=== PATIENT | male | born 1985 | race Caucasian/White ===

== ENCOUNTER 2018-02-16 21:14 | Emergency (ER) | payer SELFPAY ==
[~2018-02-16] VITALS: Ht 177.8 cm; Wt 79.4 kg
[2018-02-16] MEDS ORDERED: IV NS 0.9% 1,000 ML BAG IV ONE (22:00)
--- NOTE | 2018-02-16 22:00 | NUR ---
PT BIBSELF C/O ABD PAIN AND HIGH BLOOD SUGAR X 4 DAYS. PT REPORTS BLOOD SUGAR HAS BEEN IN THE 500'S. PT ON MONITOR IN BED 7. WILL CONTINUE TO MONITOR.
--- NOTE | 2018-02-16 22:19 | NUR ---
PHLEB AT BED SIDE FOR LAB DRAW
[2018-02-16 22:29] LABS: BASOPHILS # (AUTO) 0.1 /CMM (0.0-0.2); BASOPHILS % (AUTO) 1.1 % (0.0-2.0); EOSINOPHILS % (AUTO) 1.7 % (0.0-6.0); HEMATOCRIT 29 % (39-51); HEMOGLOBIN 9.3 g/dL (13.5-17.5); LYMPHOCYTES # (AUTO) 1.1 /CMM (0.8-4.8); LYMPHOCYTES % (AUTO) 20.9 % (20.0-44.0); MEAN CORPUSCULAR HGB CONC 33 g/dl (31.0-36.0); MEAN CORPUSCULAR VOLUME 78 fL (80-96); MONOCYTES # (AUTO) 0.4 /CMM (0.1-1.30); NEUTROPHILS # (AUTO) 3.5 /CMM (1.8-8.9); NEUTROPHILS % (AUTO) 68.3 % (43.0-81.0); PLATELET COUNT (AUTO) 606 /CMM (150-450); RED BLOOD CELL COUNT(AUTO) 3.63 MIL/uL (4.5-6.0); WHITE BLOOD COUNT (AUTO) 5.2 K/uL (4.3-11.0)
[2018-02-16] MEDS ORDERED: INSULIN REGULAR, HUMAN 100 UNIT/ML 10 ML VIAL SQ ONE (22:30)
[2018-02-16] MEDS ORDERED: INSULIN REGULAR, HUMAN 100 UNIT/ML 10 ML VIAL ONE (22:33)
[2018-02-16 22:56] LABS: APPEARANCE,URINE Clear (CLEAR); BILIRUBIN,URINE Negative (NEGATIVE); BLOOD, URINE Negative Ery/uL (NEGATIVE); COLOR,URINE Light yellow (YELLOW); KETONES,URINE Negative (NEGATIVE); LEUKOCYTE ESTERASE ,URINE Negative (NEGATIVE); NITRITE, URINE Negative (NEGATIVE); PROTEIN,URINE Negative (NEGATIVE); UGLUCOSE 500 MG/DL mg/dL (NEGATIVE); UROBILINOGEN,URINE 0.2 EU/dL (0.2)
[2018-02-16 22:59] LABS: ALBUMIN 2.8 g/dL (3.4-5.0); BILIRUBIN,DIRECT 0.1 mg/dL (0.0-0.2); BILIRUBIN,TOTAL 0.3 mg/dL (0.2-1.0); CALCIUM, SERUM 8.9 mg/dL (8.5-10.1); CREATININE 0.8 mg/dL (0.6-1.3); POTASSIUM 4.8 mmol/L (3.5-5.1); TOTAL PROTEIN, SERUM 7.9 g/dL (6.4-8.2)
--- NOTE | 2018-02-16 23:30 | NUR ---
PT TAKEN TO RADIOLOGY FOR CT
[2018-02-16] MEDS ORDERED: MORPHINE SULFATE INJ 4 MG/ML DISP.SYRIN ONE (23:58)
[2018-02-17] MEDS ORDERED: MORPHINE SULFATE INJ 2 MG/ML DISP.SYRIN IV ONE
--- NOTE | 2018-02-17 01:01 | NUR ---
IV removed. Catheter intact and site benign. Pressure and 4x4 applied to site. No bleeding noted.Patient discharged to home in stable condition. Written and verbal after care instructions given. Patient verbalizes understanding of instruction.
[2018-02-17 01:02] VITALS: BP 143/98
== END 2018-02-17 01:03 | disposition home or self-care (01) ==
LOC: ER 21:17
DX: E11.65 Type 2 diabetes mellitus with hyperglycemia (principal); R10.84 Generalized abdominal pain; F32.9 Major depressive disorder, single episode, unspecified; G47.00 Insomnia, unspecified; F17.200 Nicotine dependence, unspecified, uncomplicated; Z98.890 Other specified postprocedural states; Z87.19 Personal history of other diseases of the digestive system; Z88.1 Allergy status to other antibiotic agents; Z88.8 Allergy status to other drugs, medicaments and biological substances
CPT/HCPCS: 36415; 80048-TC; 80076-TC; 81000-TC; 82010-TC; 82962-TC; 83605-TC; 83690-TC; 85025-TC; 85730-TC; A4606; J1815; J2270; J7030; J7040; Z7610

== ENCOUNTER 2018-03-20 18:31 | Emergency (ER) | payer SELFPAY ==
[~2018-03-20] VITALS: Ht 177.8 cm; Wt 77.1 kg
--- NOTE | 2018-03-20 19:10 | NUR ---
PT BIBSELF C/O MIDEPIGASTRIC PAIN. PT RECENTLY DISCHARGED FROM IN PATIENT, PT STATES SYMPTOMS TODAY ARE SIMILIAR FROM PREVIOUS VISIT. PT AAOX4. RESPIRATIONS EVEN AND UNLABORED. SKIN WARM AND INTACT. VITAL SIGNS STABLE. NO ACUTE DISTRESS NOTED AT THIS TIME. PT AMBULATORY TO ER BED. WILL CONTINUE TO MONITOR
--- NOTE | 2018-03-20 19:15 | NUR ---
JACIEL JUNE AT BEDSIDE FOR EVALUATION
[2018-03-20] MEDS ORDERED: ASPIRIN 81 MG TAB.CHEW ONE (19:21)
[2018-03-20] MEDS ORDERED: ASPIRIN 81 MG TAB.CHEW PO ONE (19:30)
--- NOTE | 2018-03-20 19:30 | NUR ---
UNABLE TO ESTABLISH IV ACCESS. MULTIPLE ATTEMPTS. PT STATES "USUALLY THEY HAVE TO DO A CENTRAL LINE ON ME". CALLED LAB FOR BLOOD DRAW. JACIEL JUNE AWARE
--- NOTE | 2018-03-20 19:42 | NUR ---
RADIOLOGY AT BEDSIDE FOR CXR
--- NOTE | 2018-03-20 20:10 | NUR ---
SUPPLY AND DISTRIBUTION MANAGER AT BEDSIDE FOR BLOOD DRAW
--- NOTE | 2018-03-20 20:15 | NUR ---
FLU SWAB COLLECTED AND SENT TO LAB
[2018-03-20] MEDS ORDERED: ONDANSETRON 4 MG TAB.RAPDIS ONE (20:16)
[2018-03-20] MEDS ORDERED: HYDROMORPHONE HCL 2 MG TABLET ONE ×2 (20:16→23:07)
[2018-03-20 20:30] LABS: BASOPHILS # (AUTO) 0.1 /CMM (0.0-0.2); BASOPHILS % (AUTO) 0.7 % (0.0-2.0); EOSINOPHILS % (AUTO) 0.3 % (0.0-6.0); HEMATOCRIT 32 % (39-51); HEMOGLOBIN 10.2 g/dL (13.5-17.5); LYMPHOCYTES # (AUTO) 1.6 /CMM (0.8-4.8); MEAN CORPUSCULAR HGB CONC 32 g/dl (31.0-36.0); MEAN CORPUSCULAR VOLUME 79 fL (80-96); MONOCYTES # (AUTO) 0.4 /CMM (0.1-1.30); MONOCYTES % (AUTO) 3.4 % (2.0-12.0); NEUTROPHILS # (AUTO) 8.7 /CMM (1.8-8.9); NEUTROPHILS % (AUTO) 80.6 % (43.0-81.0); PLATELET COUNT (AUTO) 740 /CMM (150-450); RED BLOOD CELL COUNT(AUTO) 4.01 MIL/uL (4.5-6.0); WHITE BLOOD COUNT (AUTO) 10.8 K/uL (4.3-11.0)
[2018-03-20] MEDS ORDERED: ONDANSETRON 4 MG TAB.RAPDIS SL ONE (20:30)
[2018-03-20] MEDS ORDERED: HYDROMORPHONE HCL 2 MG TABLET PO PRN ×2 (20:30→23:00)
[2018-03-20 20:45] LABS: ALANINE AMINOTRANSFERASE 16 U/L (12-78); ALBUMIN 3.2 g/dL (3.4-5.0); ALKALINE PHOSPHATASE 115 U/L (46-116); ASPARTATE AMINOTRANSFERASE 9 U/L (15-37); BILIRUBIN,DIRECT 0.1 mg/dL (0.0-0.2); BILIRUBIN,TOTAL 0.3 mg/dL (0.2-1.0); CALCIUM, SERUM 9.5 mg/dL (8.5-10.1); CARBON DIOXIDE 25 mmol/L (21-32); CHLORIDE 96 mmol/L (98-107); CREATININE 0.9 mg/dL (0.6-1.3); POTASSIUM 4.4 mmol/L (3.5-5.1); SODIUM SERUM 129 mmol/L (136-145); TOTAL PROTEIN, SERUM 8.8 g/dL (6.4-8.2); UREA NITROGEN, BLOOD 20 mg/dL (7-18)
[2018-03-20 20:47] LABS: GLUCOSE 582 mg/dL (74-106)
[2018-03-20 21:24] LABS: APPEARANCE,URINE Clear (CLEAR); BILIRUBIN,URINE Negative (NEGATIVE); BLOOD, URINE Trace-intact Ery/uL (NEGATIVE); COLOR,URINE Yellow (YELLOW); KETONES,URINE Negative (NEGATIVE); LEUKOCYTE ESTERASE ,URINE Negative (NEGATIVE); NITRITE, URINE Negative (NEGATIVE); PH,URINE 5.5 (5.0-8.0); PROTEIN,URINE Negative (NEGATIVE); UGLUCOSE >=1000 mg/dL (NEGATIVE); UROBILINOGEN,URINE 0.2 EU/dL (0.2)
[2018-03-20] MEDS ORDERED: INSULIN REGULAR, HUMAN 100 UNIT/ML 10 ML VIAL SQ ONE ×2 (21:30→23:30)
[2018-03-20] MEDS ORDERED: IV NS 0.9% 1,000 ML BAG IV ONE (21:30)
[2018-03-20 21:34] LABS: BACTERIA,URINE Few /HPF (None Seen); SQUAMOUS EPITHELIAL CELL,UR Few /HPF (None Seen); WBC,URINE 0-2 /HPF (0-3)
[2018-03-20] MEDS ORDERED: INSULIN REGULAR, HUMAN 100 UNIT/ML 10 ML VIAL ONE (22:17)
--- NOTE | 2018-03-20 22:25 | NUR ---
PICC LINE NURSE AT BEDSIDE
--- NOTE | 2018-03-20 22:25 | NUR ---
DUPLEX AT BEDSIDE
--- NOTE | 2018-03-20 22:37 | NUR ---
GAVE REPORT TO JONI LANGSTON FOR [facility]
--- NOTE | 2018-03-20 23:16 | NUR ---
Midline insertion unsuccessful.
--- NOTE | 2018-03-20 23:17 | NUR ---
PER JACIEL JUNE, GIVING PT PLENTY FLUIDS PO. PT TOLERATING WELL. PT RESTING AT BEDSIDE. VITAL SIGNS STABLE
[2018-03-21] MEDS ORDERED: APIXABAN 5 MG TABLET PO SCH (01:00)
--- NOTE | 2018-03-21 01:00 | NUR ---
CALLED NURSING SUP FOR ELIQUIS, NONE AVAILABLE
--- NOTE | 2018-03-21 02:29 | NUR ---
Patient discharged to home in stable condition. Written and verbal after care instructions given. Patient verbalizes understanding of instruction. Pt ambulatory with a steady gait. Pt refused copy of labs and images. Instructed pt not to drive, verablized understanding
[2018-03-21 02:30] VITALS: BP 126/98
== END 2018-03-21 02:31 | disposition home or self-care (01) ==
LOC: ER 18:31 → TELE 22:38 → UNDOADMIN 22:38 → TELE 03-21 01:04
DX: E11.65 Type 2 diabetes mellitus with hyperglycemia (principal); R81 Glycosuria; I82.622 Acute embolism and thrombosis of deep veins of left upper extremity; D64.9 Anemia, unspecified; D47.3 Essential (hemorrhagic) thrombocythemia; F32.9 Major depressive disorder, single episode, unspecified; F17.200 Nicotine dependence, unspecified, uncomplicated; G47.00 Insomnia, unspecified; Z79.4 Long term (current) use of insulin; Z98.890 Other specified postprocedural states; Z88.1 Allergy status to other antibiotic agents; Z88.8 Allergy status to other drugs, medicaments and biological substances
CPT/HCPCS: 36415; 36569; 71045-TC; 80048-TC; 80076-TC; 81000-TC; 82962-TC; 83605-TC; 83690-TC; 84484-TC; 85025-TC; 85730-TC; 87040-TC; 87086-TC; 87400; 93971-TC; G0378; J1815; Q0162

== ENCOUNTER 2018-03-25 14:55 | Inpatient (IN) | payer SELFPAY ==
[~2018-03-25] VITALS: Ht 177.8 cm; Wt 79.4 kg
--- NOTE | 2018-03-25 14:59 | NUR ---
1st call, Patient is not in the waiting room.
[2018-03-25] MEDS ORDERED: IV NS 0.9% 1,000 ML BAG IV ONE (15:30)
[2018-03-25] MEDS ORDERED: MORPHINE SULFATE INJ 2 MG/ML DISP.SYRIN IV ONE (15:30)
[2018-03-25] MEDS ORDERED: ONDANSETRON HCL/PF 4 MG/2 ML VIAL IVP ONE (15:30)
--- NOTE | 2018-03-25 15:30 | NUR ---
BIB SELF, C/O ABD PAIN & NAUSEA FOR 6 DAYS. PT AAOX4, VSS. DENIES CP, SOB, DIZZINESS, DIARRHEA @ THIS TIME. PT SEEN & EVAL'D BY DR. WORRELL. WILL CONT TO MONITOR.
[2018-03-25 15:41] LABS: BASOPHILS % (AUTO) 0.7 % (0.0-2.0); HEMATOCRIT 28 % (39-51); HEMOGLOBIN 9.1 g/dL (13.5-17.5); LYMPHOCYTES # (AUTO) 0.6 /CMM (0.8-4.8); LYMPHOCYTES % (AUTO) 14.6 % (20.0-44.0); MEAN CORPUSCULAR HGB CONC 32 g/dl (31.0-36.0); MEAN CORPUSCULAR VOLUME 81 fL (80-96); MONOCYTES # (AUTO) 0.3 /CMM (0.1-1.30); MONOCYTES % (AUTO) 6.2 % (2.0-12.0); NEUTROPHILS # (AUTO) 3.4 /CMM (1.8-8.9); NEUTROPHILS % (AUTO) 77.5 % (43.0-81.0); PLATELET COUNT (AUTO) 554 /CMM (150-450); RED BLOOD CELL COUNT(AUTO) 3.48 MIL/uL (4.5-6.0); WHITE BLOOD COUNT (AUTO) 4.4 K/uL (4.3-11.0)
[2018-03-25] MEDS ORDERED: MORPHINE SULFATE INJ 4 MG/ML DISP.SYRIN ONE (15:41)
[2018-03-25] MEDS ORDERED: ONDANSETRON HCL/PF 4 MG/2 ML VIAL ONE (15:41)
--- NOTE | 2018-03-25 15:45 | NUR ---
PT TO CT VIA [facility].
[2018-03-25 15:57] LABS: ALANINE AMINOTRANSFERASE 24 U/L (12-78); ALBUMIN 3.3 g/dL (3.4-5.0); ALKALINE PHOSPHATASE 115 U/L (46-116); ASPARTATE AMINOTRANSFERASE 33 U/L (15-37); BILIRUBIN,DIRECT 0.1 mg/dL (0.0-0.2); BILIRUBIN,TOTAL 0.3 mg/dL (0.2-1.0); CARBON DIOXIDE 29 mmol/L (21-32); CHLORIDE 93 mmol/L (98-107); CREATININE 0.9 mg/dL (0.6-1.3); LIPASE 60 U/L (73-393); POTASSIUM 4.6 mmol/L (3.5-5.1); SODIUM SERUM 128 mmol/L (136-145); TOTAL PROTEIN, SERUM 8.3 g/dL (6.4-8.2); UREA NITROGEN, BLOOD 7 mg/dL (7-18)
[2018-03-25 15:57] LABS: APPEARANCE,URINE Clear (CLEAR); BILIRUBIN,URINE Negative (NEGATIVE); BLOOD, URINE Negative Ery/uL (NEGATIVE); COLOR,URINE Light yellow (YELLOW); KETONES,URINE Negative (NEGATIVE); LEUKOCYTE ESTERASE ,URINE Negative (NEGATIVE); NITRITE, URINE Negative (NEGATIVE); PH,URINE 5.5 (5.0-8.0); PROTEIN,URINE Negative (NEGATIVE); UGLUCOSE 500 MG/DL mg/dL (NEGATIVE); UROBILINOGEN,URINE 0.2 EU/dL (0.2)
[2018-03-25 16:01] LABS: GLUCOSE 561 mg/dL (74-106)
[2018-03-25] MEDS ORDERED: INSULIN REGULAR, HUMAN 100 UNIT/ML 10 ML VIAL ONE (16:17)
--- NOTE | 2018-03-25 16:24 | NUR ---
MEDICATED FOR PAIN & INSULIN PER ERMD ORDER, PT [place]ER[place] WELL.
[2018-03-25] MEDS ORDERED: INSULIN REGULAR, HUMAN 100 UNIT/ML 10 ML VIAL IV ONE (16:30)
[2018-03-25] MEDS ORDERED: INSULIN REGULAR, HUMAN 100 UNIT/ML 10 ML VIAL SQ ONE (16:30)
--- NOTE | 2018-03-25 17:30 | NUR ---
Patient is resting comfortably in bed with eyes closed. Easily aroused. VSS. PT STS ABD PAIN 09/03 & WILL GO BACK TO SLEEP. ERMD AWARE.
--- NOTE | 2018-03-25 17:45 | NUR ---
CALLED [employer] WATER PUMP OPERATOR WAS PAGED.
--- NOTE | 2018-03-25 18:30 | NUR ---
PT WENT TO RESTROOM & TOOK SOMETHING FROM HIS BACK PACK. NOTIFIED DR. WORRELL.
[2018-03-25] MEDS ORDERED: IV NS 0.9% 1,000 ML IV PRN (18:52)
[2018-03-25] MEDS ORDERED: Z GUARD REMEDY 2 OZ OINT TP PRN (19:00)
[2018-03-25] MEDS ORDERED: MAG HYDROX/AL HYDROX/SIMETH 30 ML UDC PO PRN (19:00)
[2018-03-25] MEDS ORDERED: MAGNESIUM HYDROXIDE 30 ML UDC PO PRN (19:00)
[2018-03-25] MEDS ORDERED: ACETAMINOPHEN 325 MG TABLET PO PRN (19:00)
[2018-03-25] MEDS ORDERED: *INSULIN REGULAR(HUMULIN R)HUM 100 UNIT/ML VIAL SQ PRN (19:00)
[2018-03-25] MEDS ORDERED: INSULIN REGULAR, HUMAN 100 UNIT/ML 3 ML VIAL SQ PRN (19:00)
[2018-03-25] MEDS ORDERED: HYDROCODONE/APAP 5/325MG 1 EACH TABLET PO PRN (19:00)
[2018-03-25] MEDS ORDERED: DEXTROSE 50%-WATER 50 ML DISP.SYRIN IV PRN (19:00)
[2018-03-25] MEDS ORDERED: ONDANSETRON HCL/PF 4 MG/2 ML VIAL IVP PRN (19:00)
--- NOTE | 2018-03-25 19:13 | NUR ---
SEARCHED BACK PACK FOR BELONGING'S LIST WITH JERRY, EMT & PT COMPLIED. FOUND 10 CC SYRINGES W/ DRIED ORANGE COLOR PARTICLES ON TIP. PT STS " IT'S DRIED PAINT ". SHOWED DR. WORRELL.
--- NOTE | 2018-03-25 19:26 | NUR ---
REPORT GIVEN TO IVIS YIP @ [facility] FOR CONT OF CARE.
[2018-03-25 20:00] VITALS: BP 112/69
--- NOTE | 2018-03-25 20:30 | NUR ---
RN/MS NOTES: PT. CAME IN W/C FROM ER W/ HIS BELONGING BAG PACK. A/O X 4. PT. V/S DONE. BELONGING LIST DONE. PT. ASKED FOR SOMETHING FOR PAIN. FRAMING MANAGER EXPLAINED THAT THERE IS TYLENOL. PT. STATED " I WANT SOMETHING STRONGER FOR PAIN. IF NOT THEN I AM GOING TO LEAVE." FRAMING MANAGER INFORMED WILL CALL PER NP. LARA " NO IV MEDS JUST TYLENOL AND IF PT. WANTS TO LEAVE AMA FINE BUT D/C PILL LINE. FRAMING MANAGER EXPLAINED PT. WHAT KATHY LARA SAID. PT. SAID I AM LEAVING. FRAMING MANAGER GOT AMA FORM SIGNED BY PT. FRAMING MANAGER INFORMED ABOUT PICC LINE D/C. PT. GOT UPSET AND SAID " I CAME W/ THIS PICC LINE. I HAVE DVT AND I AM SUPPOSE TO GET ANTIBIOTICS AND BLOOD THINNERS." PT. RAN DOWNSTAIRS. FRAMING MANAGER CALLED SECURITY TO STOP THE PT. FRAMING MANAGER RAN AFTER PT. ALONG W/ 3 SECURITY OFFICERS GOT PT. TOOK PT. TO ER AND FRAMING MANAGER D/C [place]PE PILL LINE W/ TIP INTACT. PT. LEFT. INFORMED KATHY LARA PT. LEFT AMA AND PICC D/C. PT. LEFT AT ABOUT 2014.
[2018-03-25] MEDS ORDERED: BLOOD SUGAR DIAGNOSTIC 1 EACH STRIP VI SCH (22:00)
[2018-03-26] MEDS ORDERED: PANTOPRAZOLE 40 MG VIAL IV SCH (09:00)
[2018-03-26] MEDS ORDERED: NICOTINE PATCH (14MG) 14 MG PATCH.TD24 TD SCH (09:00)
== END 2018-03-25 20:15 | disposition left against medical advice (07) | DRG 74 ==
LOC: ER 14:58 → MEDSG2 18:36
PROVIDERS: ADMIT Registered Nurse; ATTEND Registered Nurse
DX: E10.43 Type 1 diabetes mellitus with diabetic autonomic (poly)neuropathy (principal); E87.1 Hypo-osmolality and hyponatremia; K86.1 Other chronic pancreatitis; F17.210 Nicotine dependence, cigarettes, uncomplicated; F32.9 Major depressive disorder, single episode, unspecified; G89.4 Chronic pain syndrome; F41.9 Anxiety disorder, unspecified; K31.84 Gastroparesis; Z79.4 Long term (current) use of insulin; Z90.49 Acquired absence of other specified parts of digestive tract; Z76.5 Malingerer [conscious simulation]; G47.00 Insomnia, unspecified; E10.65 Type 1 diabetes mellitus with hyperglycemia; Z79.01 Long term (current) use of anticoagulants; Z90.411 Acquired partial absence of pancreas; Z90.81 Acquired absence of spleen; Z86.718 Personal history of other venous thrombosis and embolism
CPT/HCPCS: 36415; 80048-TC; 80076-TC; 81000-TC; 82962-TC; 83690-TC; 84484-TC; 85025-TC; 85730-TC; 87081-TC; G0378; J1815; J2270; J2405; J7030